=== PATIENT | female | born 1985 | race Caucasian/White ===

== ENCOUNTER 2023-10-20 13:24 | Emergency (ER) | payer MEDICAID ==
[~2023-10-20] VITALS: Ht 167.6 cm; Wt 77.1 kg
[2023-10-20] MEDS: FAMOTIDINE/PF INJ 20 MG/2 ML VIAL IV ONE (14:17)
[2023-10-20] MEDS ORDERED: methylPREDNISolone SOD SUCC 125 MG/2ML VIAL ONE (14:18)
[2023-10-20] MEDS ORDERED: diphenhydrAMINE HCL 50 MG/ML VIAL ONE (14:18)
[2023-10-20] MEDS ORDERED: FAMOTIDINE/PF INJ 20 MG/2 ML VIAL IV ONE (14:19)
[2023-10-20] MEDS: diphenhydrAMINE HCL 50 MG/ML VIAL IV ONE (14:20)
[2023-10-20] MEDS: IV NS 0.9% 1,000 ML BAG IV ONE (14:20)
[2023-10-20] MEDS: methylPREDNISolone SOD SUCC 125 MG/2ML VIAL IV ONE (14:25)
[2023-10-20 14:37] LABS: BASOPHILS % (AUTO) 0.1 % (0.0-2.0); HEMATOCRIT 32 % (33-45); HEMOGLOBIN 10.3 g/dL (11.5-14.8); LYMPHOCYTES # (AUTO) 0.5 K/uL (0.8-4.8); LYMPHOCYTES % (AUTO) 7.5 % (20.0-44.0); MEAN CORPUSCULAR HEMOGLOBIN 21 PG (26.0-33.0); MEAN CORPUSCULAR HGB CONC 32 g/dl (31.0-36.0); MEAN CORPUSCULAR VOLUME 66 fL (82-100); MONOCYTES # (AUTO) 0.6 K/uL (0.1-1.30); MONOCYTES % (AUTO) 8.4 % (2.0-12.0); NEUTROPHILS # (AUTO) 5.5 K/uL (1.8-8.9); PLATELET COUNT (AUTO) 197 K/uL (150-450); RED BLOOD CELL COUNT(AUTO) 4.89 MIL/uL (4.0-5.2); RED CELL DISTRIBUTION WIDTH 18.5 % (11.5-15.0); WHITE BLOOD COUNT (AUTO) 6.6 K/uL (4.3-11.0)
[2023-10-20] MEDS ORDERED: CT SWABBABLE VALVE TRANS SET 1 EA INFUS.SET MC ONE (14:41)
[2023-10-20] MEDS ORDERED: IOHEXOL-300 100 ML VIAL IV ONE (14:41)
[2023-10-20] MEDS ORDERED: IV NS 0.9% 250 ML IV ONE (14:42)
[2023-10-20 14:48] LABS: CREATININE 0.8 mg/dL (0.6-1.3); POTASSIUM 3.5 mmol/L (3.5-5.1)
[2023-10-20 15:00] LABS: LACTIC ACID 1.9 mmol/L (0.4-2.0)
[2023-10-20] MEDS ORDERED: PIPERACI/TAZO 3.375GM/D5W 50ML PB IV ONE (16:02)
[2023-10-20 16:13] LABS: ANISOCYTOSIS 1+; LYMPHOCYTES % (MANUAL) 10 % (16-48); MONOCYTES % (MANUAL) 8 % (0-11.0); NEUTROPHILS % (MANUAL) 82 (42-76); PLATELET ESTIMATE ADEQUATE
[2023-10-20] MEDS: PIPERACILLIN /TAZOBACTAM 3.375 G in IV D5W 50 ML IV ONE (16:14)
[2023-10-20] MEDS ORDERED: KETOROLAC TROMETHAMINE 15 MG/ML VIAL ONE (16:31)
[2023-10-20] MEDS: KETOROLAC TROMETHAMINE 15 MG/ML VIAL IV ONE (16:33)
[2023-10-20] MEDS ORDERED: PRED20TA PO (17:12)
[2023-10-20] MEDS ORDERED: IBUP-1955 PO (17:12)
[2023-10-20] MEDS ORDERED: AMOX-430 PO (17:12)
[2023-10-20 17:40] VITALS: BP 116/77; TEMP 99.1; O2SAT 100
== END 2023-10-20 17:40 | disposition home or self-care (01) ==
LOC: ER 14:02
DX: J36 Peritonsillar abscess (principal); R19.7 Diarrhea, unspecified; R11.2 Nausea with vomiting, unspecified; R10.9 Unspecified abdominal pain; Z88.8 Allergy status to other drugs, medicaments and biological substances; Z20.822 Contact with and (suspected) exposure to COVID-19
CPT/HCPCS: 99285; 96365; 70491; 96361; 96375 ×4; 87426; 87804 ×2; 85025; 80048; 87040 ×2; 83605; 36415; 87880; 87070; 85007; J1200; J3490; J2919; J2543 ×2; J7060; J7030; J7050; Q9967; J1885; 86403-TC